=== PATIENT | male | born 1950 | race Caucasian/White ===

== ENCOUNTER 2016-05-29 20:48 | Emergency (ER) | payer MEDICARE ==
[2016-05-29 21:32] LABS: BASO % 0.3 % (0.2-1.2); EOS # 0.3 10_X3_uL (0.0-0.5); EOS % 3.8 % (0.8-7.0); GRAN # 4.6 10_X3_uL (1.8-5.4); HEMATOCRIT 40.6 % (40-51); HEMOGLOBIN 14.1 g/dL (13.7-17.5); LYMPH # 3.1 10_X3_uL (1.3-3.6); LYMPH % 36.3 % (21.8-53.1); MEAN CORPUSCULAR HEMOGLOBIN 31.2 pg (27.0-33.0); MEAN CORPUSCULAR HGB CONC 34.7 g/dL (32.0-36.0); MEAN CORPUSCULAR VOLUME 89.8 fL (79-92); MEAN PLATELET VOLUME 10.1 fl (7.5-11.5); MONO # 0.5 10_X3_uL (0.3-0.8); MONO % 5.6 % (5.3-12.2); PLATELET COUNT 260 x10_3/uL (163-337); RED BLOOD COUNT 4.52 x10_6/uL (4.6-6.1); RED CELL DISTRIBUTION WIDTH 13.3 % (11.6-14.4); WHITE BLOOD COUNT 8.6 x10_3/uL (4.2-9.1)
[2016-05-29 21:48] LABS: ALKALINE PHOSPHATASE 69 U/L (50-136); ALT/SGPT 14 U/L (7.53-40.17); AMYLASE 53 U/L (15.62-74.58); AST/SGOT 16 U/L (6.66-35.34); BLOOD UREA NITROGEN 16 mg/dL (7-18); CALCIUM 8.8 mg/dL (8.7-10.7); CARBON DIOXIDE 25 mmol/L (21-32); GLUCOSE,RANDOM 108 mg/dL (70-99); LIPASE 46 U/L (6.75-60.75); POTASSIUM 3.9 mmol/L (3.5-5.1); SODIUM 139 mmol/L (136-145); TOTAL PROTEIN 6.6 gm/dL (6.4-8.2)
[2016-05-29 21:51] LABS: BILIRUBIN,TOTAL < 0.15 mg/dL (0.0-1.0)
== END 2016-05-29 22:15 | disposition home or self-care (01) ==
LOC: ER 20:48
PROVIDERS: General Practice
DX: R11.2 Nausea with vomiting, unspecified (principal); R10.12 Left upper quadrant pain; F17.210 Nicotine dependence, cigarettes, uncomplicated
CPT/HCPCS: 36415; 80053; 82150; 83690; 85025; 99070; 99283